=== PATIENT | male | born 1995 | race Caucasian/White ===

== ENCOUNTER 2017-08-31 15:41 | Emergency (ER) | payer SELFPAY ==
[~2017-08-31] VITALS: Ht 167.6 cm; Wt 75.0 kg
[2017-08-31] MEDS ORDERED: TORADOL PO (18:08)
[2017-08-31 18:20] VITALS: BP 130/77
== END 2017-08-31 18:20 | disposition home or self-care (01) | DRG 605 ==
LOC: ED 15:41
DX: S90.02XA Contusion of left ankle, initial encounter (principal); S90.01XA Contusion of right ankle, initial encounter; S90.32XA Contusion of left foot, initial encounter; S90.31XA Contusion of right foot, initial encounter; W31.89XA Contact with other specified machinery, initial encounter; Y93.H3 Activity, building and construction; Y92.69 Other specified industrial and construction area as the place of occurrence of the external cause; Y99.0 Civilian activity done for income or pay

== ENCOUNTER 2017-09-05 15:41 | Emergency (ER) | payer SELFPAY ==
[~2017-09-05] VITALS: Ht 167.6 cm; Wt 80.0 kg
[~2017-09-05 15:41] MED LIST: TORADOL PO
[2017-09-05 17:00] VITALS: BP 129/74
== END 2017-09-05 17:00 | disposition home or self-care (01) | DRG 556 ==
LOC: ED 15:41
DX: M79.672 Pain in left foot (principal); W31.89XD Contact with other specified machinery, subsequent encounter; Y93.H3 Activity, building and construction; Y92.69 Other specified industrial and construction area as the place of occurrence of the external cause; Y99.0 Civilian activity done for income or pay

== ENCOUNTER 2023-05-09 14:18 | Emergency (ER) | payer SELFPAY ==
[~2023-05-09] VITALS: Ht 167.6 cm; Wt 77.2 kg
[2023-05-09] MEDS ORDERED: LIDOcaine HCl 1% (Local Anesth.) 20 ML VIAL STI STA (15:01)
[2023-05-09] MEDS ORDERED: POVIDONE IODINE 0.5 OZ/BTL TOP ONE (15:05)
[2023-05-09] MEDS ORDERED: Diph, Acellular Pertussis, Tet 0.5 ML/VIAL (Tdap) SDV IM ONE (15:05)
[2023-05-09] MEDS ORDERED: SODIUM CHLORIDE 0.9% FOR IRRIGATION 250 ML BTL IR ONE (15:50)
[2023-05-09] MEDS ORDERED: SODIUM CHLORIDE 1,000 ML BTL IR ONE (15:55)
[2023-05-09] MEDS ORDERED: STERILE WATER 10 ML/VIAL SDV IM ONE (16:15)
[2023-05-09] MEDS ORDERED: oxyCODONE 5MG/ ACETAMINOPHEN 325MG TAB PO ONE (16:15)
[2023-05-09] MEDS ORDERED: ceFAZolin 1 GM/VIAL SDV IM ONE (16:15)
[2023-05-09] MEDS ORDERED: KEFLEX500 MG PO (17:01)
[2023-05-09] MEDS ORDERED: NEOMYCIN-BACITRACIN-POLYMYXIN 0.5 GM/PAK PAK TOP ONE (17:05)
[2023-05-09 17:33] VITALS: BP 130/77
== END 2023-05-09 17:31 | disposition home or self-care (01) | DRG 605 ==
LOC: ED 14:18
PROC: 0HQNXZZ Repair Left Foot Skin, External Approach (ICD-10-PCS; principal; 2023-05-09)
DX: S91.312A Laceration without foreign body, left foot, initial encounter (principal); F17.210 Nicotine dependence, cigarettes, uncomplicated; W29.3XXA Contact with powered garden and outdoor hand tools and machinery, initial encounter; Y93.H9 Activity, other involving exterior property and land maintenance, building and construction; Y92.007 Garden or yard of unspecified non-institutional (private) residence as the place of occurrence of the external cause